=== PATIENT | male | born 1980 | race Caucasian/White ===

== ENCOUNTER 2017-02-06 16:09 | Inpatient (IN) | payer BC, OTHER ==
[~2017-02-06] VITALS: Ht 195.6 cm; Wt 97.8 kg
[2017-02-06 16:58] LABS: BLOOD UREA NITROGEN 15 mg/dL (7-18)
[2017-02-06] MEDS ORDERED: SODIUM CHLORIDE 0.9% 1,000ML IVBOLUS ONE (17:00)
[2017-02-06 17:03] LABS: ASPARTATE AMINO TRANSFERASE 18 U/L (15-37)
[2017-02-06 17:04] LABS: IS PT STATUS REG ER OR PRE ER? YES
[2017-02-06] MEDS ORDERED: DOCUSATE 100 MG CAPSULE PO PRN (19:30)
[2017-02-06] MEDS ORDERED: ENOXAPARIN 40 MG/0.4 ML SQ SCH (19:30)
[2017-02-06] MEDS ORDERED: TEMAZEPAM 15 MG CAPSULE PO PRN (19:30)
[2017-02-06] MEDS ORDERED: ACETAMINOPHEN 325 MG TABLET PO PRN (19:30)
[2017-02-06] MEDS ORDERED: GADOBUTROL 10 MMOL/10 ML PFS ONE (20:17)
[2017-02-06 20:50] VITALS: BP 126/71
[2017-02-06] MEDS ORDERED: LORazepam 0.5MG TABLET PO ONE (22:30)
[2017-02-07 02:00] VITALS: BP 116/71
[2017-02-07 06:58] VITALS: BP 113/71
[2017-02-07 12:48] VITALS: BP 116/68
[2017-02-07] MEDS ORDERED: ASPI-496 PO (15:42)
== END 2017-02-07 18:25 | disposition home or self-care (01) | DRG 101 ==
LOC: ED 19:29 → EDIP 19:30 → 4WST 21:04
PROVIDERS: ADMIT Internal Medicine; ATTEND Internal Medicine
DX: R56.9 Unspecified convulsions (principal); I49.9 Cardiac arrhythmia, unspecified; F41.9 Anxiety disorder, unspecified; F17.210 Nicotine dependence, cigarettes, uncomplicated; F17.220 Nicotine dependence, chewing tobacco, uncomplicated; M50.321 Other cervical disc degeneration at C4-C5 level; Z90.89 Acquired absence of other organs; Z98.52 Vasectomy status; Z82.49 Family history of ischemic heart disease and other diseases of the circulatory system; Z82.0 Family history of epilepsy and other diseases of the nervous system
CPT/HCPCS: 36415; 70450; 70553; 71020; 72156; 80053; 82306; 83735; 84439; 84443; 84484; 85025; 85379; 93306; 96360; A9585; J7030

== ENCOUNTER → 2017-02-23 | Outpatient (CLI) | payer OTHER ==
[~2017-02-23] MED LIST: ASPI-496 PO
== END | disposition home or self-care (01) ==
LOC: CARD 08:00
PROVIDERS: ATTEND Psychiatry & Neurology Neurology
DX: R56.9 Unspecified convulsions (principal)
CPT/HCPCS: 95819

== ENCOUNTER 2017-07-10 07:00 | Day surgery (SDC) | payer OTHER ==
[2017-07-10] MEDS ORDERED: LIDOCAINE/PF 1%-EPI 1:200K, 30 ML ONE (07:58)
[2017-07-10] MEDS ORDERED: PLEASE ENTER HEIGHT AND WEIGHT MC SCH (08:30)
[2017-07-10] MEDS ORDERED: ASPIRIN 81 MG TABLET EC PO SCH (09:00)
== END 2017-07-10 08:35 | disposition home or self-care (01) ==
LOC: CACL 07:00
PROVIDERS: ATTEND Internal Medicine Cardiovascular Disease
DX: R55 Syncope and collapse (principal)
CPT/HCPCS: 33282; C1764; J3490

== ENCOUNTER 2018-09-06 10:53 | Day surgery (SDC) | payer OTHER ==
[2018-09-06] MEDS ORDERED: LIDOCAINE-MPF 1%, 5ML ONE ×2 (11:10→11:13)
== END 2018-09-06 12:20 | disposition home or self-care (01) ==
LOC: CACL 10:53
PROVIDERS: ATTEND Internal Medicine Cardiovascular Disease
DX: Z45.09 Encounter for adjustment and management of other cardiac device (principal)
CPT/HCPCS: 33284